=== PATIENT | female | born 1930 | race Caucasian/White ===

== ENCOUNTER 2017-01-30 16:20 | Inpatient (IN) | payer MEDICARE, OTHER ==
[~2017-01-30] VITALS: Ht 165.1 cm; Wt 68.4 kg
--- NOTE | ~2017-01-30 | HP ---
PATIENT: JAXON MARTINEZ MEDICAL RECORD: [id number] ACCOUNT: [id number] LOCATION:[address] : 30 ADMISSION DATE: 01/30/17 HISTORY AND PHYSICAL EXAMINATION REASON FOR ADMISSION: Fever and cough, confusion. HISTORY OF PRESENT ILLNESS: The patient is an 86-year-old female who states for the last 3 or 4 days has had intermittent cough. She became wetter in the last few days, she developed 102 fever last evening. She came to the office today and was afebrile and appeared well, totally oriented. Chest x-ray at that time showed question of an early patchy left lower lobe density, but due to her marked thoracal scoliosis that was hard to assess. She is not going to be hospitalized. She was given Rocephin IM and placed on Augmentin, which she did not fill. When she went back home, she developed confusion, weakness and fever to 102 and I directly admitted her to the hospital for that reason. She denies any exposure to anyone sick recently. Denies sinus congestion or sore throat or headache. She has had diarrhea off and on for several weeks, 1-2 loose stools a day. She has not been on any recent antibiotics, she states. PAST MEDICAL HISTORY: Chronic tremor, urinary stress incontinence, hypothyroidism, hypertension, restless leg syndrome, chronic low back pain with lumbar canal stenosis, history of cervical canal stenosis, depression, history of a hemorrhage in the right occipital lobe that resolved earlier this year on MRI thought to be due to trauma, history of vertigo, peptic ulcer disease, IBS and history of cervical cancer, CIS, concussion, osteoporosis, low back pain, chronic pain syndrome, and anemia. PAST SURGICAL HISTORY: She had a hysterectomy, cataract lens insertions both eyes, colonoscopy in 2011, tonsillectomy. She has had cervical spinal surgery for stenosis and lumbar spinal surgery, and cholecystectomy. FAMILY HISTORY: Parents of old age, she states. SOCIAL HISTORY: She lives in [place], is moving to [facility] where her daughter has recently moved. HOME MEDICATIONS: Primidone 50 mg in the morning, 100 mg at night, pantoprazole 40 mg daily, Myrbetriq 50 mg daily, levothyroxine 50 mcg p.o. q.a.m. before meals, breakfast, metoprolol succinate ER 25 mg p.o. 2 tablets daily, Atrovent nasal spray 2 puffs each nostril daily, losartan 50 mg a day, Mirapex 1/2 to 1 mg at bedtime p.r.n. restless legs, gabapentin 100 mg p.o. b.i.d., Klor-Con 10 mEq p.o. daily, and Zoloft 25 mg p.o. daily. ALLERGIES: MORPHINE, ERYTHROMYCIN, AND SEPTRA. REVIEW OF SYSTEMS: CONSTITUTIONAL: Fever last 24 hour was 102 with confusion. HEENT: Denies headache or new visual change or otalgia, sore throat. RESPIRATORY: She has had a dry cough, nonproductive, but denies shortness of breath or chest wall pain. CARDIAC: Denies chest pain, palpitations, or edema. GASTROINTESTINAL: No nausea or vomiting. She has had 1-2 loose diarrhea stools daily for the last several weeks. ENDOCRINE: Denies polyuria, polydipsia, heat or cold intolerance. HISTORY AND PHYSICAL [id number] JAXON MARTINEZ NEUROLOGIC: Chronic tremor, no recent headache. She had marked confusion when she spiked a temperature to 102 today, but is now back to baseline now that she is afebrile. MUSCULOSKELETAL: Has chronic cervical and lumbar back pain with radiation down the right leg. GENITOURINARY: Has chronic stress incontinence and has had Botox injections for that without improvement. Denies any recent dysuria. Has multiple cystitis in the past. No recent hematuria or malodorous urine currently. INTEGUMENT: No rash or itching. PSYCHIATRIC: Denies depress mood. PHYSICAL EXAMINATION: GENERAL: Alert 86-year-old female in no acute distress. VITAL SIGNS: Temperature is 102.6 Fahrenheit orally, initially and now is 99 degrees posttreatment, heart rate 93 and regular, respirations are 20, blood pressure 120/51 with a sat of 90% on room air. HEENT: Normocephalic. Eyes are clear. Ears clear. Throat unremarkable except for dry mucous membranes. NECK: Limited range of motion to flexion and extension. No carotid bruits or JVD. CHEST: Question of rhonchi in the left lower lobe anteriorly. Right lung is clear. Upper thorax shows thoracal scoliosis rotation to the right. ABDOMEN: Soft, nontender. PELVIC: Deferred. EXTREMITIES: Show marked arthritic changes in her hands and feet. She has crepitus in both knees, but no edema. INTEGUMENT: No rash. NEUROLOGIC: Oriented to person, place, and time. Cranial nerves grossly intact. Gait is limited due to musculoskeletal deformities. LABORATORY DATA: White count 7500 with left shift, 83 polys, 8 lymphs, platelet count 139,000, H&H is 11 and 33.3. Chemistry shows sodium 132, BUN and creatinine of 22 and 1.1 and glucose 114 nonfasting. Chest x-ray is pending in the office. Chest x-ray showed question of a patchy density in the left lower lobe. ASSESSMENT: 1. Febrile illness with altered mental status. 2. Possible left lower lobe community-acquired pneumonia. 3. Hyponatremia. 4. Chronic pain syndrome. 5. Cervical and lumbar stenosis. 6. Hypertension. 7. Restless legs syndrome. 8. Tremor. 9. Urinary incontinence. PLAN: We will check UA and culture now to make sure it is not the source for her fever. Repeat chest x-ray when she is hydrated, monitor blood pressure closely. We will place on telemetry. Discussed case with the patient and her daughter. TRANSINT:[id number] Voice Confirmation ID: [id number] DOCUMENT ID: [id number] HISTORY AND PHYSICAL [id number] JAXON MARTINEZ TIMOTHY MD CC: [id number] DICTATION DATE: 01/30/171821 ENGINEERING MECHANIC: 01/30/171944 ADM IN [facility] [address] [id number]
--- NOTE | 2017-01-30 16:30 | NUR ---
TRANSFER FROM EMS BY STRETCHER. OREINTED TO ROOM. CALL LIGHT IN REACH. WILL CONT. PLAN OF CARE.
[2017-01-30] MEDS ORDERED: GABAPENTIN100 MG PO (16:42)
[2017-01-30] MEDS ORDERED: LEVOTHYROXINE50 MCG PO (16:43)
[2017-01-30] MEDS ORDERED: MYSOLINE 50 MG50 MG PO ×2 (16:44)
[2017-01-30] MEDS ORDERED: TOPROL XL25 MG PO (16:45)
[2017-01-30] MEDS ORDERED: COZAAR50 MG PO (16:45)
[2017-01-30] MEDS ORDERED: PROTONIX40 MG PO (16:46)
[2017-01-30] MEDS ORDERED: MIRAPEX1 MG PO (16:46)
[2017-01-30] MEDS ORDERED: ZOLOFT25 MG PO (16:47)
[2017-01-30 16:56] VITALS: BP 121/51; Ht 165.1 cm; Wt 68.4 kg
[2017-01-30 17:22] LABS: BASOPHILS 0.1 % (0-2); EOSINOPHILS 0.1 % (0-7); HEMATOCRIT 33.3 % (36.0-48.0); IMMATURE GRANULOCYTES 0.1 % (0-5); LYMPHOCYTES 8.1 % (15-50); MCH 30.9 pg (26.0-34.0); MCV 93.5 fL (80.0-100.0); MEAN PLATELET VOLUME 10.9 fL (7.4-10.4); MONOCYTES 8.5 % (2-11); NEUTROPHILS 83.1 % (40-80); PLATELET COUNT 139 10x3/uL (130-400); RBC 3.56 10x6/uL (4.00-5.40); RDW 13.1 % (11.5-14.5); WBC 7.5 10x3/uL (4.8-10.8)
[2017-01-30 17:42] LABS: CALCIUM 7.7 mg/dL (8.5-10.1); CARBON DIOXIDE 24.2 mmol/L (21.0-32.0); CREATININE - SERUM 1.1 mg/dL (0.6-1.3); POTASSIUM - SERUM 4.2 mmol/L (3.5-5.1)
[2017-01-30 19:00] VITALS: BP 97/40
[2017-01-31] VITALS: BP 118/54
--- NOTE | 2017-01-31 00:10 | NUR ---
ASSISTED PT WITH USE OF BED VALDIVIA, URINE SPECIMEN COLLECTED AND TAKEN TO LAB.
[2017-01-31 01:51] LABS: APPEARANCE CLEAR (CLEAR); BILIRUBIN NEGATIVE (NEGATIVE); COLOR YELLOW (YELLOW); GLUCOSE NEGATIVE (NEGATIVE); KETONE NEGATIVE (NEGATIVE); LEUKOCYTE ESTERASE TRACE (NEGATIVE); NITRITE NEGATIVE (NEGATIVE); PROTEIN NEGATIVE (NEGATIVE); SPECIFIC GRAVITY 1.015 (1.005-1.020); UROBILINOGEN NORMAL (NORMAL)
[2017-01-31 01:52] LABS: BACTERIA FEW /hpf (NONE SEEN); EPITHELIAL CELLS 0-5 /hpf (0-5); RED CELLS - URINE NONE SEEN /hpf (0-5); WHITE CELLS - URINE 0-5 /hpf (0-5)
--- NOTE | 2017-01-31 01:58 | NUR ---
RESTING WITH EYES CLOSED. RESPERATIONS EVEN, NO S/S DISTRESS NOTED.
--- NOTE | 2017-01-31 04:12 | NUR ---
ASSSITED PT WITH BED VALDIVIA, REPOSITIONED IN BED FOR COMFORT.
[2017-01-31 04:32] VITALS: BP 127/88
[2017-01-31 06:33] LABS: ALBUMIN 2.5 g/dL (3.4-5.0); BILIRUBIN - DIRECT 0.07 mg/dL (0.00-0.30); BILIRUBIN - INDIRECT 0.33 mg/dL (0.00-1.00); BILIRUBIN - TOTAL 0.4 mg/dL (0.2-1.3); PROTEIN - SERUM 5.7 g/dL (6.4-8.2)
[2017-01-31 08:00] VITALS: BP 143/47
--- NOTE | 2017-01-31 08:13 | NUR ---
ASSESSMENT DONE. DENIES NEEDS.
--- NOTE | 2017-01-31 10:00 | NUR ---
RESP UL ON . NO NEEDS VOICED. CALL LIGHT IN REACH. WILL MONITOR.
[2017-01-31 16:00] VITALS: BP 138/85
--- NOTE | 2017-01-31 18:08 | NUR ---
WITHOUT CHANGES OR DISTRESS NOTED AT THIS TIME. DENIES NEEDS.
--- NOTE | 2017-01-31 19:28 | NUR ---
PT RESTING IN BED. NAME AND DATE PLACED ON WHITE BOARD. PT DENIES ANY NEEDS. NO S/S OF DISTRESS. WILL CPOC
--- NOTE | 2017-01-31 21:07 | NUR ---
PT TEMP IS 100.1 ORAL. PT ASKS FOR A TYLENOL. TYLENOL GIVEN. PT ALSO ASKS FOR A CUP OF ICE AND HER FOOD HEATED UP THAT SHE DID NOT EAT FOR DINNER. PT CURRENTLY EATING. PT HAS TREMORS AT THIS TIME. STATES THEY ARE WORSE THAN USUAL. PT LEFT FOREARM IV UNHOOKED AND FLUSHED. IV PATENT. PT C/O TENDERNESS AND IV SITE IS PINK. NO PAIN WHEN FLUSHING IV. PT DENIES ANY OTHER NEEDS. PT AAO X4. NO S/S OF DISTRESS.WILL CPOC
[2017-01-31 21:45] VITALS: BP 140/57
--- NOTE | 2017-02-01 06:08 | NUR ---
PT RESTING IN BED. STATES SHE URINATED IN HER BRIEF BECAUSE SHE COULDNT HOLD IT TILL SHE GOT ASSIST TO THE RESTROOM. GETTING PT CLEAN AND DRY. CHANGED PAD. PT DENIES ANY OTHER NEEDS. NO S/S OF DISTRESS. WILL CPOC
[2017-02-01 06:47] LABS: BASOPHILS 0.1 % (0-2); EOSINOPHILS 1.5 % (0-7); HEMATOCRIT 33.9 % (36.0-48.0); IMMATURE GRANULOCYTES 0.3 % (0-5); LYMPHOCYTES 12.8 % (15-50); MCH 30.9 pg (26.0-34.0); MCHC 32.4 g/dL (31.0-37.0); MCV 95.2 fL (80.0-100.0); MEAN PLATELET VOLUME 11.2 fL (7.4-10.4); MONOCYTES 10.6 % (2-11); NEUTROPHILS 74.7 % (40-80); PLATELET COUNT 153 10x3/uL (130-400); RBC 3.56 10x6/uL (4.00-5.40); RDW 13.2 % (11.5-14.5); WBC 6.8 10x3/uL (4.8-10.8)
[2017-02-01 07:08] LABS: ANION GAP 14.3 mmol/L (8-16); CALCIUM 7.8 mg/dL (8.5-10.1); CARBON DIOXIDE 24.9 mmol/L (21.0-32.0); CREATININE - SERUM 1.1 mg/dL (0.6-1.3); POTASSIUM - SERUM 4.2 mmol/L (3.5-5.1)
--- NOTE | 2017-02-01 08:11 | NUR ---
ASSESSMENT DONE. DR PÉREZ HERE
[2017-02-01 08:16] VITALS: BP 154/73
--- NOTE | 2017-02-01 09:32 | NUR ---
LEAVING FOR X-RAY BY W/C.
[2017-02-01 11:58] VITALS: BP 165/80
[2017-02-01 17:37] VITALS: BP 154/71
--- NOTE | 2017-02-01 17:47 | NUR ---
WITHOUT CHANGES OR DIOSTRESS NOTED AT THIS TIME. DENIES NEEDS.
[2017-02-01 19:00] VITALS: BP 148/57
--- NOTE | 2017-02-01 19:17 | NUR ---
PT UP TO RESTROOM WITH ASSISTANCE AND WALKER. BRACE ON LEFT FOOT. SHOES ON. GAIT UNSTEADY. MOD AMOUNT OF URINE MISSED HAT FOR MEASUREMENT. INCONT A LARGE AMOUNT IN BREIF. NEW BREIF ON AND CLEAN PAD FOR BED. PT HAS LEFT FOREARM IV INFUSING AZITHROMYCIN @ 120. IV IS RED. PT EATING DINNER. ASKS FOR ROJAS AND A CUP OF ICE, GIVEN TO PT REQUESTED. PT DENIES ANY NEEDS. HOB UP 70. CALL LIGHT IN REACH. BED LOW WILL CPOC
--- NOTE | 2017-02-01 20:30 | NUR ---
PT C/O TENDERNESS AND REDNESS AT IV SIGHT. AREA HAS INDURATION. IV REMOVED FROM LEFT FOREARM. CATH INTACT. WILL ACCESS NEW SIGHT AFTER 2100 MED PASS. PT IN AGREEMENT. PT DENIES ANY NEEDS. NO S/S OF DISTRESS. WILL CPOC
--- NOTE | 2017-02-01 20:33 | NUR ---
IV ANTIBIOTICS AZITHROMYCIN WAS NOT COMPLETE WHEN IV OUT. PT WILL GET COMPLETE DOSE NEXT ORDERED TIME.
[2017-02-02] VITALS: BP 114/45
[2017-02-02 04:00] VITALS: BP 133/61
[2017-02-02 05:09] LABS: BASOPHILS 0.3 % (0-2); HEMATOCRIT 30.9 % (36.0-48.0); HEMOGLOBIN 10.2 g/dL (12-16); IMMATURE GRANULOCYTES 0.6 % (0-5); LYMPHOCYTES 13.6 % (15-50); MCH 31.3 pg (26.0-34.0); MCV 94.8 fL (80.0-100.0); MEAN PLATELET VOLUME 11.7 fL (7.4-10.4); MONOCYTES 11.9 % (2-11); NEUTROPHILS 71.6 % (40-80); PLATELET COUNT 172 10x3/uL (130-400); RBC 3.26 10x6/uL (4.00-5.40); RDW 13.2 % (11.5-14.5); WBC 6.6 10x3/uL (4.8-10.8)
[2017-02-02 05:34] LABS: ANION GAP 11.2 mmol/L (8-16); CARBON DIOXIDE 23.7 mmol/L (21.0-32.0); CREATININE - SERUM 1.1 mg/dL (0.6-1.3); POTASSIUM - SERUM 3.9 mmol/L (3.5-5.1)
[2017-02-02] MEDS ORDERED: LEVAQUIN750 MG PO (07:24)
--- NOTE | 2017-02-02 07:30 | NUR ---
ASSESSMENT COMPLETED. TELEMERTY SHOWS SR. ON ROOM AIR. SL TO LFA. BOOT TO LEFT FA. DENIES ANY NEEDS. CALL LIGHT IN REACH WITH SR UP. WILL MONITOR
[2017-02-02 08:06] VITALS: BP 119/56
--- NOTE | 2017-02-02 08:07 | NUR ---
Patient Name: JAXON MARTINEZ Admission Status: Elective Accout number: [id number] Admission Date: 01-30-2017 : 1930 Admission Diagnosis: Attending: DAVID PÉREZ Current LOS: 3 Anticipated DC Date: 02-02-2017 Planned Disposition: Home with Home Health Primary Insurance: MEDICARE A & B Discharge Planning Comments: MET WITH PATIENT TO DISCUSS DISCHARGE NEEDS. PATIENT CURRENTLY LIVES ALONE, BUT ON 03-01-17 IS PLANNING TO MOVE TO AN ASSISTED LIVING FACILITY IN [place], [place] (SHE THINKS IT IS IN [place], [place]). SHE HAS MULTIPLE PIECES OF MEDICAL EQUIPMENT AT HOME. SHE STATED THE DOCTOR IS WORKING ON GETTING HER AN ELECTRIC WHEELCHAIR. SHE HAS ORDERS FOR HOME HEALTH, AND STATED THAT SHE BELIEVES THAT SHE USED [facility] IN THE PAST AND WOULD LIKE TO USE THEM AGAIN. SHE REQUESTED THAT I VERIFY THIS WAS THE COMPANY SHE USED IN THE PAST FIRST. I EXPLAINED I WOULD. PT DENIES ANY OTHER NEEDS. HER DAUGHTER WILL PICK HER UP FOR TRANSPORT HOME. EXPLAINED THAT I WAS AVAILABLE IF SHE WERE TO THINK OF ANY OTHER NEEDS PRIOR TO DISCHARGE. Cataract Lens Generator: Zina Chand Is the patient Alert and Oriented? Yes * How many steps to enter\exit or inside your home? 0 * PCP DR DAVID PÉREZ * Pharmacy [facility] * Preadmission Environment Home Alone * ADLs Independent * Equipment Bedside Commode Rolling Walker Shower Chair Wheelchair * Other Equipment SCD'S * List name and contact numbers for known caregivers / representatives who currently or will assist patient after discharge: FRANCI CHANG, DAUGHTER, * Community resources currently utilized None * Additional services required to return to the preadmission environment? Yes * Can the patient safely return to the preadmission environment? Yes * Has this patient been hospitalized within the prior 30 days at any hospital? No
--- NOTE | 2017-02-02 08:46 | NUR ---
SPOKE WITH MICHAEL AT [facility] ([phone]). THE WILL BE GLAD TO ACCEPT THE PATIENT WITH SOC ON MONDAY. INFORMATION WILL BE FAXED TO HIM. HE STATED THAT THE PHONE LINES ARE MESSING UP SO IF THE FAX STATES IT WON'T SENT, TO CALL HIM AT [phone] AND HE WILL BE GLAD TO COME BY AND MEDICAL RECORDS CODER A COPY OF THE INFORMATION.
--- NOTE | 2017-02-02 11:06 | NUR ---
PT DISCHARGED. IV DCD. INSTRUCTIONS GIVEN TO PT AND SITTER. TO PRIVATE CAR PER WHEEL CHAIR.
== END 2017-02-02 11:13 | disposition home health service (06) | DRG 193 ==
LOC: D.M2 16:20
PROVIDERS: Family Medicine; ADMIT Family Medicine
DX: J18.9 Pneumonia, unspecified organism (principal); G93.49 Other encephalopathy; E87.1 Hypo-osmolality and hyponatremia; R25.1 Tremor, unspecified; M48.02 Spinal stenosis, cervical region; M48.06 Spinal stenosis, lumbar region; F32.9 Major depressive disorder, single episode, unspecified; G89.4 Chronic pain syndrome; I10 Essential (primary) hypertension; E03.9 Hypothyroidism, unspecified; M41.9 Scoliosis, unspecified